=== PATIENT | female | born 1990 | race Caucasian/White ===

== ENCOUNTER 2018-01-16 19:02 | Emergency (ER) | payer OTHER ==
--- NOTE | 2018-01-16 19:45 | ED Physician Documentation ---
History of Present Illness - Stated complaint Stated Complaint: CP/TIGH CHEST - Chief complaint Chief Complaint: General - History obtained from History obtained from: Patient - History of Present Illness Timing: Last night (She developed some right upper chest tightness last night that was non-positional. She has no shortness of breath or cough with it. No hemoptysis, no pedal edema. No palpitations. She is not on control. It made her anxious. She has a long history of anxiety although never formally diagnosed or treated. Today the anxiety was worse and that made the chest pain worse. No recent travel.) Review of Systems Constitutional: denies: Fever, Chills, Fatigue Cardiac: reports: Chest pain / pressure. 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 - Present Medications Home Medications: Ambulatory Orders Medication Instructions Recorded Confirmed Lorazepam [Ativan] 1 mg PO TID PRN #7 tablet 01/16/18 - Allergies Allergies/Adverse Reactions: Allergies Allergy/AdvReac Type Severity Reaction Status Date / Time No Known Drug Allergies Allergy Verified 01/16/18 19:10 - Social History Does the pt smoke?: No Smoking Status: Never smoker Does the pt drink ETOH?: Yes Does the pt have substance abuse?: No - Immunizations Immunizations are current?: Yes PD ED PE NORMAL - Vitals Vital signs reviewed: Yes - General General: Alert and oriented X 3, No acute distress - HEENT HEENT: PERRL, EOMI - Neck Neck: Supple, no meningeal sign, No bony TTP - Cardiac Cardiac: RRR, No murmur - Respiratory Respiratory: No respiratory distress, Clear bilaterally - Abdomen Abdomen: Non tender - Extremities Extremities: No edema, No calf tenderness / cord - Neuro Neuro: Alert and oriented X 3, Normal speech Results - Vitals Vitals: Vital Signs - 24 hr 01/16/18 01/16/18 19:04 20:10 Temperature 36.3 C L 36.6 C Heart Rate 69 62 Respiratory 18 16 Rate Blood Pressure 130/88 H 115/78 O2 Saturation 100 100 Oxygen O2 Source Room air - EKG (time done) 1936 Rate: Rate (enter#) (56) Rhythm: NSR [place]: Normal Intervals: Normal [place] QRS: Normal Ischemia: Normal ST segments Computer interpretation: Agree with computer - Rads (name of study) 2v chest Radiology: EMP read contemporaneously (normal) PD MEDICAL DECISION MAKING - ED course ED course: I considered pulmonary embolism in this patient. Clinically the pretest probability of pulmonary embolism is less than 15%. I applied to the PERC rules as follows: The patient's age is under 50, heart rate less than 100, oxygen saturation greater than 94%, the patient does not have a history of DVT or PE. Patient has no recent trauma or surgery. The patient has no hemoptysis. The patient is not on exogenous estrogens. The patient does not have clinical signs suggesting DVT. As such the patient ruled out for pulmonary embolism by PERC criteria. - Sepsis Event Vital Signs: Vital Signs - 24 hr 01/16/18 01/16/18 19:04 20:10 Temperature 36.3 C L 36.6 C Heart Rate 69 62 Respiratory 18 16 Rate Blood Pressure 130/88 H 115/78 O2 Saturation 100 100 Oxygen O2 Source Room air Departure - Departure Disposition: 01 Home, Self Care Clinical Impression: Anxiety Chest pain Qualifiers: Chest pain type: unspecified Qualified Code(s): R07.9 - Chest pain, unspecified Condition: Good Record reviewed to determine appropriate education?: Yes Instructions: ED Chest Pain NonCardiac, ED Panic Attack Prescriptions: Lorazepam [Ativan] 1 mg PO TID PRN #7 tablet PRN Reason: Anxiety Comments: Call your doctor to arrange a follow-up appointment, make the next available appointment. In the interim, return anytime if worse or if new symptoms develop. Your blood pressure was elevated today on check into the emergency department. This does not mean that you have hypertension, it is a common phenomenon to come to the emergency department and have elevated blood pressure. I recommend that you see your primary care physician within the week to have it rechecked when you are feeling better. Discharge Date/Time: 01/16/18 20:19
[2018-01-16] MEDS ORDERED: LORazepam 0.5 MG TABLET PO STA (20:02)
[2018-01-16 20:11] VITALS: BP 115/78
--- NOTE | 2018-01-16 20:36 | XRAY Report ---
Reason: chest pain Procedure Date: 01/16/2018 Accession Number: [id number] / [id number] Procedure: XR - Chest 2 View X-Ray CPT Code: 40827 FULL RESULT: EXAM: CHEST RADIOGRAPHY EXAM DATE: 01/16/2018 08:02 PM. CLINICAL HISTORY: Chest pain. COMPARISON: None. TECHNIQUE: 2 views. FINDINGS: Lungs/Pleura: No focal opacities evident. No pleural effusion. No pneumothorax. Normal volumes. Mediastinum: Heart and mediastinal contours are unremarkable. Other: No bony abnormality noted. IMPRESSION: Normal 2-view chest radiography. [facility]
== END 2018-01-16 20:19 | disposition home or self-care (01) ==
LOC: ED 19:02
DX: F41.9 Anxiety disorder, unspecified (principal); R07.9 Chest pain, unspecified; R03.0 Elevated blood-pressure reading, without diagnosis of hypertension
CPT/HCPCS: 71046; 93005; 99283; A9270